=== PATIENT | male | born 1975 | race Caucasian/White ===

== ENCOUNTER 2021-06-11 19:29 | Emergency (ER) | payer BC ==
[~2021-06-11] VITALS: Ht 177.8 cm; Wt 84.0 kg
[2021-06-11] MEDS ORDERED: LACTATED RINGERS 1,000 ML IV STA (20:23)
--- NOTE | 2021-06-11 20:23 | ED General ---
General Chief Complaint: Dizziness/Syncope Stated Complaint: SHAKY, LIGHT HEADED, DIZZY, NUMBNESS Source of Information: Patient Exam Limitations: No Limitations History of Present Illness Date Seen by Provider: Jun 11, 2021 Time Seen by Provider: 19:35 Initial Comments 46-year-old male with past medical history of IBS-D and anemia coming in due to generally feeling lightheaded, general weakness, chronic diarrhea with no blood. Does intermittently been strick alcohol. Had 6 or 7 beers yesterday. Prior to that had not had a beer or drink of alcohol in over a week. Has never had any type of withdrawals. Denies any real chest pain that is severe, shortness of breath, abdominal pain, focal weakness or focal numbness, headache, vision changes, or any other concerns. Has been eating and drinking slightly less today. No fevers that he knows of. Allergies and Home Medications Allergies Coded Allergies: No Known Drug Allergies (Unverified , 06/11/21) Patient Home Medication List Home Medication List Reviewed: Yes Review of Systems Review of Systems Constitutional: No chills EENTM: No blurred vision Respiratory: No cough Cardiovascular: No chest pain Gastrointestinal: No abdominal pain; diarrhea; No vomiting Genitourinary: no symptoms reported Musculoskeletal: no symptoms reported Skin: no symptoms reported Psychiatric/Neurological: Other (Lightheaded) Hematologic/Lymphatic: No Symptoms Reported Immunological/Allergic: no symptoms reported All Other Systems Reviewed Negative Unless Noted: Yes Past Kfxfarh-Qgmppi-Zjakjv Hx Patient Social History Tobacco Use?: No Smoking Status: Never a Smoker Smokeless Tobacco Frequency: Never a User Use of E-Cig and/or Vaping dev: No Use of E-Cig and/or Vaping Garrett: Never a User Substance use?: No Alcohol Use?: Yes Alcohol type: Beer Alcohol Frequency: Daily Pt feels they are or have been: No Immunizations Up To Date Influenza Vaccine Up-to-Date: No; Not Current First/Initial COVID19 Vaccinat: 03/2020 Second COVID19 Vaccination Ozzy: 04/2020 COVID19 Vaccine Community Relations Officer: wilbert Past Medical History Surgeries: No Physical Exam Vital Signs Vital Signs - First Documented 06/11/21 20:10 Temp 36.6 Pulse 137 Resp 20 B/P (MAP) 154/95 (114) Pulse Ox 97 O2 Delivery Room Air Capillary Refill : Height, Weight, BMI Height: '" Weight: lbs. oz. kg; BMI Method: General Appearance: No Apparent Distress, WD/WN, Anxious Eyes: Bilateral Eye Normal Inspection HEENT: PERRL/EOMI, Normal ENT Inspection, Pharynx Normal Neck: Full Range of Motion, Normal Inspection, Non Tender Respiratory: Chest Non Tender, Lungs Clear, Normal Breath Sounds, No Accessory Muscle Use, No Respiratory Distress Cardiovascular: No Edema, Normal Peripheral Pulses, Tachycardia Gastrointestinal: Normal Bowel Sounds, Non Tender, Soft; No Distended, No Guarding Back: Normal Inspection, No CVA Tenderness, No Vertebral Tenderness Extremity: Normal Capillary Refill, Normal Inspection, Normal Range of Motion, Non Tender, No Calf Tenderness, No Pedal Edema Neurologic/Psychiatric: Alert, Oriented x3, No Motor/Sensory Deficits, Normal 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, 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 Norm as Tested, Other (Normal iylwfc-gb-tpsa, normal visual pedroza, normal gait) Skin: Normal Color, Warm/Dry Lymphatic: No Adenopathy Progress/Results/Core Measures Suspected Sepsis SIRS Temperature: Pulse: Respiratory Rate: Laboratory Tests 06/11/21 20:16: White Blood Count 10.5 Blood Pressure / Mean: Laboratory Tests 06/11/21 20:16: Creatinine 1.09, INR Comment 1.0, Platelet Count 334, Total Bilirubin 0.9 Results/Orders Lab Results Laboratory Tests Test 06/11/21 20:14 06/11/21 20:16 Range/Units Glucometer 108 70-110 MG/DL White Blood Count 10.5 4.3-11.0 10^3/uL Red Blood Count 5.12 4.30-5.52 10^6/uL Hemoglobin 16.6 13.3-17.7 g/dL Hematocrit 47 40-54 % Mean Corpuscular Volume 92 80-99 fL Mean Corpuscular Hemoglobin 32 25-34 pg Mean Corpuscular Hemoglobin Concent 35 32-36 g/dL Red Cell Distribution Width 13.9 10.0-14.5 % Platelet Count 334 130-400 10^3/uL Mean Platelet Volume 9.5 9.0-12.2 fL Immature Granulocyte % (Auto) 0 % Neutrophils (%) (Auto) 83 H 42-75 % Lymphocytes (%) (Auto) 10 L 12-44 % Monocytes (%) (Auto) 6 0-12 % Eosinophils (%) (Auto) 0 0-10 % Basophils (%) (Auto) 0 0-10 % Neutrophils # (Auto) 8.7 H 1.8-7.8 10^3/uL Lymphocytes # (Auto) 1.1 1.0-4.0 10^3/uL Monocytes # (Auto) 0.6 0.0-1.0 10^3/uL Eosinophils # (Auto) 0.0 0.0-0.3 10^3/uL Basophils # (Auto) 0.0 0.0-0.1 10^3/uL Immature Granulocyte # (Auto) 0.0 0.0-0.1 10^3/uL Prothrombin Time 13.1 12.2-14.7 SEC INR Comment 1.0 0.8-1.4 Sodium Level 139 135-145 MMOL/L Potassium Level 3.5 L 3.6-5.0 MMOL/L Chloride Level 104 98-107 MMOL/L Carbon Dioxide Level 17 L 21-32 MMOL/L Anion Gap 18 H 5-14 MMOL/L Blood Urea Nitrogen 15 7-18 MG/DL Creatinine 1.09 0.60-1.30 MG/DL Estimat Glomerular Filtration Rate 85 BUN/Creatinine Ratio 14 Glucose Level 102 70-105 MG/DL Calcium Level 9.7 8.5-10.1 MG/DL Corrected Calcium 8.5-10.1 MG/DL Magnesium Level 2.0 1.6-2.4 MG/DL Total Bilirubin 0.9 0.1-1.0 MG/DL Aspartate Amino Transf (AST/SGOT) 97 H 5-34 U/L Alanine Aminotransferase (ALT/SGPT) 98 H 0-55 U/L Alkaline Phosphatase 125 40-136 U/L Troponin I < 0.028 <0.028 NG/ML Total Protein 8.2 6.4-8.2 GM/DL Albumin 4.7 H 3.2-4.5 GM/DL My Orders Orders - SINDY SUAZO MD Cbc With Automated Diff (06/11/21 20:17) Comprehensive Metabolic Panel (06/11/21 20:17) Magnesium (06/11/21 20:17) Protime With Inr (06/11/21 20:17) Troponin I Ronnie (06/11/21 20:17) Chest 1 View, Ap/Pa Only (06/11/21 20:17) Ekg Tracing (06/11/21 20:17) Lactated Ringers (Lr 1000 Ml Iv Solution (06/11/21 20:23) Acetaminophen Tablet (Tylenol Tablet) (06/11/21 20:30) Medications Given in ED Current Medications Medications Dose Ordered Sig/Lexus Route Start Time Stop Time Status Last Admin Dose Admin Acetaminophen 1,000 mg ONCE ONCE PO 06/11/21 20:30 06/11/21 20:31 DC 06/11/21 20:39 1,000 MG Vital Signs/I&O 06/11/21 20:10 Temp 36.6 Pulse 137 Resp 20 B/P (MAP) 154/95 (114) Pulse Ox 97 O2 Delivery Room Air Capillary Refill : Progress Note : Progress Note 46-year-old male with above history coming in feeling lightheaded. ABCs were intact and vitals were stable on presentation although he is mildly tachycardic. An IV was placed and he was given a bolus of IV fluids. He did binge drink yesterday and has not really had a lot to eat or drink today. Heart rate came down nicely with fluids. Hemoglobin looks concentrated on CBC around 16 which would be consistent with dehydration. Labs otherwise essentially unremarkable. Chest x-ray without acute abnormalities. Troponin negative, and not having any active chest pain I believe he stable for discharge with outpatient follow-up. He was sent home with strict return precautions. ECG Initial ECG Impression Date: Jun 11, 2021 Initial ECG Impression Time: 20:25 Initial ECG Rate: 121 Initial ECG Rhythm: S.Tach Comment Narrow QRS, normal axis, no significant ST changes or T wave abnormalities Departure Impression Primary Impression: Lightheaded Disposition: 01 HOME, SELF-CARE Condition: Stable Departure-Patient Inst. Decision time for Depature: 21:09 Referrals: ILDEFONSO VALENZUELA MD (PCP/Family) Primary Care Physician Patient Instructions: Dizziness, Adult ED Add. Discharge Instructions: Drink plenty of fluids, take ibuprofen or Tylenol for pain, do not take Tylenol when drinking however. It does appear like you are dehydrated based on your labs. Work/School Note: Work Release Form Date Seen in the Emergency Department: Jun 11, 2021 Return to Work: Jun 12, 2021 Restrictions: No Restrictions SINDY SUAZO MD Jun 11, 2021 20:23
[2021-06-11 20:25] LABS: BASOPHILS % (AUTO) 0 % (0-10); EOSINOPHILS % (AUTO) 0 % (0-10); HEMATOCRIT 47 % (40-54); HEMOGLOBIN 16.6 g/dL (13.3-17.7); LYMPHOCYTES # (AUTO) 1.1 10^3/uL (1.0-4.0); LYMPHOCYTES % (AUTO) 10 % (12-44); MEAN CORPUSCULAR HEMOGLOBIN 32 pg (25-34); MEAN CORPUSCULAR HGB CONC 35 g/dL (32-36); MEAN CORPUSCULAR VOLUME 92 fL (80-99); MEAN PLATELET VOLUME 9.5 fL (9.0-12.2); MONOCYTES # (AUTO) 0.6 10^3/uL (0.0-1.0); MONOCYTES % (AUTO) 6 % (0-12); NEUTROPHILS # (AUTO) 8.7 10^3/uL (1.8-7.8); NEUTROPHILS % (AUTO) 83 % (42-75); PLATELET COUNT 334 10^3/uL (130-400); WHITE BLOOD COUNT 10.5 10^3/uL (4.3-11.0)
[2021-06-11] MEDS ORDERED: ACETAMINOPHEN 500 MG TAB (TYLENOL) PO ONE (20:30)
[2021-06-11 20:35] LABS: PROTHROMBIN TIME PATIENT 13.1 SEC (12.2-14.7)
[2021-06-11 20:38] LABS: ALANINE AMINOTRANSFERASE 98 U/L (0-55); ALBUMIN 4.7 GM/DL (3.2-4.5); ALKALINE PHOSPHATASE 125 U/L (40-136); BILIRUBIN,TOTAL 0.9 MG/DL (0.1-1.0); BUN/CREATININE RATIO 14; CALCIUM 9.7 MG/DL (8.5-10.1); CARBON DIOXIDE 17 MMOL/L (21-32); CHLORIDE 104 MMOL/L (98-107); CREATININE SERUM 1.09 MG/DL (0.60-1.30); GFR ESTIMATED 85; GLUCOSE 102 MG/DL (70-105); POTASSIUM 3.5 MMOL/L (3.6-5.0); SODIUM 139 MMOL/L (135-145); TOTAL PROTEIN 8.2 GM/DL (6.4-8.2)
--- NOTE | 2021-06-11 20:46 | Diagnostic Imaging Report ---
INDICATION: Chest pain COMPARISON: 10/01/12 FINDINGS: Single view of the chest demonstrates a moderate-sized hiatal hernia. The heart is prominent without pulmonary edema. There is no pneumothorax or effusion. Osseous structures are normal. IMPRESSION: Hiatal hernia. Dictated by: Dictated on workstation # [id number]
[2021-06-11 21:20] VITALS: BP 145/93
== END 2021-06-11 21:20 | disposition home or self-care (01) ==
LOC: EDUNIT# 19:29 → ER 19:35
DX: R42 Dizziness and giddiness (principal); R00.0 Tachycardia, unspecified
CPT/HCPCS: 36415; 71045; 80053; 82947; 83735; 84484; 85025; 85610; 93005

== ENCOUNTER 2022-08-19 14:32 | Inpatient (IN) | payer BC ==
[2022-08-19] VITALS (8 sets, daily range): BP systolic 118–147; BP diastolic 63–93
[~2022-08-19] VITALS: Ht 177 cm; Wt 82.0 kg
--- NOTE | 2022-08-19 14:54 | ED General ---
General Chief Complaint: General Problems/Pain Stated Complaint: LOW HEMOGLOBIN Nursing Triage Note: PT PRESENTS TO ED VIA POV FROM HOME WITH COMPLAINTS OF LETHARGY, AND SOA WITH EXTERTION X 2 WEEKS. PT HAD LAB WORK DONE AT HIS DR YESTERDAY AND REPORTS HE WAS CALLED TODAY SAYING HIS HGB WAS "CRITICALLY LOW" Source of Information: Patient Exam Limitations: No Limitations (SINDY WALLACE) History of Present Illness Date Seen by Provider: Aug 19, 2022 Time Seen by Provider: 14:52 Initial Comments Patient Is a 47-year-old male who presents the ED for shortness of breath, lethargy. Symptoms over the past 2 weeks. Reports shortness of breath with exertion but denies chest pain. states that he feels weak and fatigue over the past 2 weeks. He states he look pale. States he had lab work drawn by his primary care physician and was recommended to come to the ER secondary to low hemoglobin. Reports history of anemia in the past but denies blood transfusion. States he had a colonoscopy in 2019 which was unremarkable. Denies of any obvious dark tarry stool, diarrhea but does have a history of IBS. Denies vomiting. No known cardiac history. Not on blood thinners. Drinks nightly reports beer and liquor. Denies of any NSAID. No known blood disorders, recent travels, surgeries. Denies of any specific chest pain, headache, dizziness, visual changes. (SINDY WALLACE) Allergies and Home Medications Allergies Coded Allergies: No Known Drug Allergies (Unverified , 06/11/21) Patient Home Medication List Home Medication List Reviewed: Yes (SINDY WALLACE) Review of Systems Review of Systems Constitutional: No chills, No diaphoresis, No malaise, No weakness EENTM: No hearing loss, No blurred vision, No double vision Respiratory: No cough, No dyspnea on exertion; short of breath Cardiovascular: No chest pain Gastrointestinal: No abdominal pain, No diarrhea, No hematemesis, No nausea, No vomiting Genitourinary: No decreased output, No discharge Musculoskeletal: No back pain, No joint pain Skin: change in color (SINDY WALLACE) All Other Systems Reviewed Negative Unless Noted: Yes (SINDY WALLACE) Past Kwdnbcf-Disoju-Lkszmz Hx Patient Social History Tobacco Use?: No Use of E-Cig and/or Vaping dev: No Substance use?: No Alcohol Use?: Yes Alcohol Frequency: Daily Pt feels they are or have been: No (SINDY WALLACE) Immunizations Up To Date First/Initial COVID19 Vaccinat: 03/2020 Second COVID19 Vaccination Ozzy: 04/2020 Third COVID19 Vaccination Date: 03/2020 (SINDY WALLACE) Past Medical History Surgery/Hospitalization HX: pmh: ibs, sleep difficulty Surgeries: No (SINDY WALLACE) Physical Exam Vital Signs Vital Signs - First Documented 08/19/22 08/19/22 14:39 16:25 Temp 38.3 Pulse 123 Resp 16 B/P (MAP) 126/67 (86) Pulse Ox 100 O2 Delivery Room Air (BARRINGTON RAYA MD) Vital Signs Capillary Refill : Less Than 3 Seconds (SINDY WALLACE) Height, Weight, BMI Height: '" Weight: lbs. oz. kg; 26.00 BMI Method: General Appearance: No Apparent Distress, WD/WN Eyes: Bilateral Eye Normal Inspection, Bilateral Eye PERRL, Bilateral Eye EOMI HEENT: PERRL/EOMI, TMs Normal Neck: Full Range of Motion, Normal Inspection, Non Tender, Supple Respiratory: Chest Non Tender, Lungs Clear, Normal Breath Sounds, No Accessory Muscle Use Cardiovascular: No Gallop, No JVD, Tachycardia Gastrointestinal: Normal Bowel Sounds, No Organomegaly, No Pulsatile Mass, Non Tender Back: Normal Inspection, No CVA Tenderness, No Vertebral Tenderness Extremity: Normal Capillary Refill, Normal Inspection, Normal Range of Motion Neurologic/Psychiatric: Alert, Oriented x3, No Motor/Sensory Deficits, Normal 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/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, 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 Norm as Tested Skin: Normal Color, Other (pallor skin) (SINDY WALLAEC) Focused Exam Lactate Level 08/19/22 16:41: Lactic Acid Level 0.95 (BARRINGTON RAYA MD) Lactic Acid Level Laboratory Tests Test 08/19/22 16:41 Lactic Acid Level 0.95 MMOL/L (0.50-2.00) (BARRINGTON RAYA MD) Progress/Results/Core Measures Suspected Sepsis SIRS Temperature: Pulse: 123 Respiratory Rate: 16 Laboratory Tests 08/19/22 14:43: White Blood Count 6.9 Blood Pressure 126 /67 Mean: 86 08/19/22 16:41: Lactic Acid Level 0.95 Laboratory Tests 08/19/22 14:43: Creatinine 0.92, INR Comment 1.3, Platelet Count 277, Total Bilirubin 1.0 (SINDY WALLACE) Results/Orders Lab Results Laboratory Tests Test 08/19/22 14:43 08/19/22 16:41 08/19/22 18:10 Range/Units White Blood Count 6.9 4.3-11.0 10^3/uL Red Blood Count 2.20 L 4.30-5.52 10^6/uL Hemoglobin 4.4 *L 13.3-17.7 g/dL Hematocrit 17 *L 40-54 % Mean Corpuscular Volume 75 L 80-99 fL Mean Corpuscular Hemoglobin 20 L 25-34 pg Mean Corpuscular Hemoglobin Concent 27 L 32-36 g/dL Red Cell Distribution Width 17.2 H 10.0-14.5 % Platelet Count 277 130-400 10^3/uL Mean Platelet Volume 10.9 9.0-12.2 fL Immature Granulocyte % (Auto) 0 % Neutrophils (%) (Auto) 78 H 42-75 % Lymphocytes (%) (Auto) 10 L 12-44 % Monocytes (%) (Auto) 11 0-12 % Eosinophils (%) (Auto) 1 0-10 % Basophils (%) (Auto) 1 0-10 % Neutrophils # (Auto) 5.3 1.8-7.8 10^3/uL Lymphocytes # (Auto) 0.7 L 1.0-4.0 10^3/uL Monocytes # (Auto) 0.7 0.0-1.0 10^3/uL Eosinophils # (Auto) 0.1 0.0-0.3 10^3/uL Basophils # (Auto) 0.0 0.0-0.1 10^3/uL Immature Granulocyte # (Auto) 0.0 0.0-0.1 10^3/uL Neutrophils % (Manual) 84 % Lymphocytes % (Manual) 8 % Monocytes % (Manual) 7 % Basophils % (Manual) 1 % Percent Immature Platelet Fraction 3.5 0.0-7.6 % Hypochromasia MARKED Basophilic Stippling SLIGHT Anisocytosis MODERATE Microcytosis MODERATE Elliptocytes SLIGHT Schistocytes SLIGHT Absolute Reticulocyte Count 57 24-90 10e9/uL Percent Reticulocyte Count 2.61 H 0.50-2.40 % Prothrombin Time 16.0 H 12.2-14.7 SEC INR Comment 1.3 0.8-1.4 Activated Partial Thromboplast Time 36 H 24-35 SEC Sodium Level 137 135-145 MMOL/L Potassium Level 3.7 3.6-5.0 MMOL/L Chloride Level 108 H 98-107 MMOL/L Carbon Dioxide Level 21 21-32 MMOL/L Anion Gap 8 5-14 MMOL/L Blood Urea Nitrogen 13 7-18 MG/DL Creatinine 0.92 0.60-1.30 MG/DL Estimat Glomerular Filtration Rate 104 BUN/Creatinine Ratio 14 Glucose Level 92 70-105 MG/DL Calcium Level 8.1 L 8.5-10.1 MG/DL Corrected Calcium 8.6 8.5-10.1 MG/DL Magnesium Level 1.9 1.6-2.4 MG/DL Iron Level 8 L 37-167 ug/dL Total Iron Binding Capacity 342 H 237-330 ug/dL Unsaturated Iron Binding Capacity 334 25-500 ug/dL Transferrin % Saturation 2 L 17-57 % Ferritin 14.8 L 32.0-356.0 ng/mL Total Bilirubin 1.0 0.1-1.0 MG/DL Aspartate Amino Transf (AST/SGOT) 45 H 5-34 U/L Alanine Aminotransferase (ALT/SGPT) 26 0-55 U/L Alkaline Phosphatase 136 40-136 U/L Troponin I < 0.028 <0.028 NG/ML Total Protein 6.0 L 6.4-8.2 GM/DL Albumin 3.4 3.2-4.5 GM/DL Lipase 58 8-78 U/L Lactic Acid Level 0.95 0.50-2.00 MMOL/L Urine Color YELLOW Urine Clarity CLEAR Urine pH 7.0 5-9 Urine Specific [place] <=1.005 1.016-1.022 Urine Protein TRACE H NEGATIVE Urine Glucose (UA) NEGATIVE NEGATIVE Urine Ketones TRACE H NEGATIVE Urine Nitrite NEGATIVE NEGATIVE Urine Bilirubin NEGATIVE NEGATIVE Urine Urobilinogen 1.0 < = 1.0 MG/DL Urine Leukocyte Esterase NEGATIVE NEGATIVE Urine RBC (Auto) NEGATIVE NEGATIVE Urine RBC 0-2 /HPF Urine WBC 0-2 /HPF Urine Squamous Epithelial Cells 0-2 /HPF Urine Crystals NONE /LPF Urine Bacteria TRACE /HPF Urine Casts NONE /LPF Urine Mucus SMALL H /LPF Urine Other /HPF Urine Culture Indicated NO (BARRINGTON RAYA MD) Vital Signs/I&O 08/19/22 08/19/22 08/19/22 08/19/22 14:39 16:25 16:40 16:55 Temp 38.3 37.0 37.3 37.3 Pulse 123 123 115 112 Resp 16 20 18 18 B/P (MAP) 126/67 (86) 120/73 125/70 118/63 Pulse Ox 100 100 98 99 O2 Delivery Room Air Room Air Room Air 08/19/22 18:10 Temp 37.3 Pulse 17 Resp 18 B/P (MAP) 133/84 Pulse Ox 100 08/20/22 00:00 Intake Total 270 ml Balance 270 ml (BARRINGTON RAYA MD) Vital Signs/I&O Capillary Refill : Less Than 3 Seconds (SINDY WALLACE) Blood Pressure Mean: 86 ECG Comment Sinus tachycardia with short MO interval, 113 bpm, QRS duration 87 MS, QTc 434 MS. (SINDY WALLACE) Critical Care Note Critical Care Start Time: 15:00 Stop Time: 15:45 Total Time (minutes) 45 min Progress Hemoglobin of 4.4 required 2 units of blood transfusion. (SINDY WALLACE) Departure Communication (PCP) Reviewed previous ER visits, H&P, lab testing. Reports history of anemia. Denies recent blood transfusion. No history of cancer. History of alcohol use nightly. Intermittent abdominal pain but no current abominal pain at this time. Patient was slightly tachycardic and febrile. Septic work-up was ordered. No urinary symptoms. Patient does appear slightly pale. Type and screen, coags general lab work. Patient Hemoccult tested positive. Patient was given 80 mg IV Protonix. CBC showed a hemoglobin of 4.4 hematocrit 17. Normal white blood count and platelets. Chemistry grossly unremarkable. Normal lactic acid. Due to the shortness of breath EKG and chest x-ray was ordered which was negative for ST elevation or depression. Sinus tachycardia noted. Chest x-ray was negative for pneumonia, pneumothorax. Tachycardic secondary to fever versus anemia. No evidence of pneumonia. Patient had no specific abdominal tenderness. Due to the history of abdominal pain and bleed CT abdomen pelvis was ordered. CT abdomen pelvis noted cirrhosis. No evidence of esophageal varices. Patient denies hematemesis or hematochezia. Denies of excessive NSAID use. Differential diagnosis would be iron deficiency anemia, GI bleed secondary to gastritis, ulcer. Patient was discussed with Dr. Jones general surgeon. Recommend clear liquids, continue with IV Protonix. Will require upper EGD and colonoscopy. Patient was discussed with Dr. Perez hospitalist who agreed to admit patient. We will provide acute orders. Does not appear to be peritonitis as he has no specific tenderness to the abdomen and normal WBC however due to the fever of unknown origin patient was given a dose of Rocephin. urinalysis currently pending. No flulike symptoms. Patient will be admitted to the ICU for further evaluation. Improvement of his heart rate. Patient was not hypoxic or hypotensive. Stable (SINDY WALLACE) Impression Primary Impression: Anemia Additional Impression: GI bleed Disposition: ADMITTED INPATIENT Condition: Stable Admissions Decision to Admit Reason: Admit from ER (General) Decision to Admit/Date: Aug 19, 2022 Time/Decision to Admit Time: 16:00 (SINDY WALLACE) Departure-Patient Inst. Referrals: NURIS COOPER MD (PCP/Family) Primary Care Physician ATTENDING PHYSICIAN NOTE: I was physically present in the Emergency Department during the evaluation and care of this patient as attending physician, and I was available for consultation and assistance. I did not personally interview or examine this patient, nor was I otherwise directly involved in the care or decision making for this patient. (BARRINGTON RAYA MD) SINDY WALLACE Aug 19, 2022 14:54 BARRINGTON RAYA MD Aug 20, 2022 08:41
[2022-08-19 14:59] LABS: BASOPHILS % (AUTO) 1 % (0-10); EOSINOPHILS # (AUTO) 0.1 10^3/uL (0.0-0.3); EOSINOPHILS % (AUTO) 1 % (0-10); LYMPHOCYTES # (AUTO) 0.7 10^3/uL (1.0-4.0); LYMPHOCYTES % (AUTO) 10 % (12-44); MEAN CORPUSCULAR HEMOGLOBIN 20 pg (25-34); MEAN CORPUSCULAR HGB CONC 27 g/dL (32-36); MEAN CORPUSCULAR VOLUME 75 fL (80-99); MEAN PLATELET VOLUME 10.9 fL (9.0-12.2); MONOCYTES # (AUTO) 0.7 10^3/uL (0.0-1.0); MONOCYTES % (AUTO) 11 % (0-12); NEUTROPHILS # (AUTO) 5.3 10^3/uL (1.8-7.8); NEUTROPHILS % (AUTO) 78 % (42-75); PLATELET COUNT 277 10^3/uL (130-400); WHITE BLOOD COUNT 6.9 10^3/uL (4.3-11.0)
[2022-08-19] MEDS ORDERED: HOLD METFORMIN - RECEIVED CONTRAST 20 ML VIAL IV SCH (15:00)
[2022-08-19] MEDS ORDERED: NS 100 ML (IVPB) BAG IV ONE (15:00)
[2022-08-19] MEDS ORDERED: IOHEXOL 350 MG/ML 100 ML (OMNIPAQUE 350) VIAL IV ONE (15:00)
[2022-08-19] MEDS ORDERED: PANTOPRAZOLE 40 MG (PROTONIX) VIAL IV ONE (15:00)
[2022-08-19 15:06] LABS: HEMATOCRIT 17 % (40-54); HEMOGLOBIN 4.4 g/dL (13.3-17.7)
[2022-08-19 15:08] LABS: ALBUMIN 3.4 GM/DL (3.2-4.5); CHLORIDE 108 MMOL/L (98-107); POTASSIUM 3.7 MMOL/L (3.6-5.0); SODIUM 137 MMOL/L (135-145)
[2022-08-19 15:09] LABS: CALCIUM 8.1 MG/DL (8.5-10.1)
[2022-08-19 15:10] LABS: GLUCOSE 92 MG/DL (70-105)
[2022-08-19 15:11] LABS: CARBON DIOXIDE 21 MMOL/L (21-32)
[2022-08-19 15:14] LABS: ALKALINE PHOSPHATASE 136 U/L (40-136); CREATININE SERUM 0.92 MG/DL (0.60-1.30); GFR ESTIMATED 104; INR 1.3 (0.8-1.4)
[2022-08-19 15:15] LABS: BUN/CREATININE RATIO 14
[2022-08-19 15:17] LABS: ALANINE AMINOTRANSFERASE 26 U/L (0-55); MAGNESIUM 1.9 MG/DL (1.6-2.4)
[2022-08-19 15:18] LABS: LIPASE 58 U/L (8-78)
[2022-08-19 15:25] LABS: ABSOLUTE RETIC # 57 10e9/uL (24-90); RETICULOCYTE % 2.61 % (0.50-2.40)
[2022-08-19 15:33] LABS: BASOPHILS % (MANUAL) 1 %; LYMPHOCYTES % (MANUAL) 8 %; MONOCYTES % (MANUAL) 7 %; NEUTROPHILS % (MANUAL) 84 %
[2022-08-19 15:34] LABS: ANISOCYTOSIS MODERATE; ELLIPT/OVALOCYTES SLIGHT; HYPOCHROMASIA MARKED; MICROCYTOSIS MODERATE; SCHISTOCYTES SLIGHT
--- NOTE | 2022-08-19 15:34 | Diagnostic Imaging Report ---
INDICATION: Shortness of breath. COMPARISON: Exam compared to 08/19/2022. FINDINGS: There is a large retrocardiac hiatal hernia. It is less distended than on prior. No adverse change. No acute pathology. The lungs are clear. No failure, effusion, or pneumothorax. IMPRESSION: Hiatal hernia, otherwise negative. Dictated by: Dictated on workstation # [id number]
--- NOTE | 2022-08-19 15:47 | Diagnostic Imaging Report ---
EXAMINATION: CT abdomen and pelvis with intravenous contrast. TECHNIQUE: Multiple contiguous axial images were obtained through the abdomen and pelvis after the uneventful administration of intravenous contrast. All CT scans use one or more of the following dose optimizing techniques: automated exposure control, MA and/or KvP adjustment based on patient size and exam type or iterative reconstruction. HISTORY: Abdominal pain COMPARISON: None available. FINDINGS: Limited views of the lower thorax show small bilateral pleural effusions, right greater than left with overlying atelectasis in the right lower lobe. There is a moderate-sized hiatal hernia. There is a cyst in the liver. Liver surface is mildly nodular suggestive of cirrhosis. There is no biliary ductal dilation. There is mild gallbladder wall edema which may be related to liver disease. Pancreas is normal. Spleen is normal. Adrenal glands are normal. The kidneys are normal. There is no hydronephrosis. Urinary bladder is normal. Bowel is normal in caliber without obstruction or inflammation. Small amount of ascites is present. No free air. No abdominal or pelvic lymphadenopathy. Aorta is normal in caliber without aneurysm. There are no suspicious osseus lesions. IMPRESSION: 1. Mildly nodular liver surface suggestive of cirrhosis with a small amount of ascites and small bilateral pleural effusions. Dictated by: Dictated on workstation # [id number]
[2022-08-19] MEDS ORDERED: NS (IVPB) 250 ML IV ONE (16:00)
[2022-08-19] MEDS ORDERED: cefTRIAXone IV/IM 1,000 MG in NS (IVPB) 50 ML IV ONE (16:30)
[2022-08-19 18:25] LABS: BILIRUBIN,URINE NEGATIVE (NEGATIVE); CLARITY,URINE CLEAR; COLOR,URINE YELLOW; GLUCOSE, URINE (UA) NEGATIVE (NEGATIVE); KETONES,URINE TRACE (NEGATIVE); LEUKOCYTE ESTERASE ,URINE NEGATIVE (NEGATIVE); NITRITE,URINE NEGATIVE (NEGATIVE); PROTEIN,URINE TRACE (NEGATIVE)
[2022-08-19] MEDS ORDERED: ACETAMINOPHEN 325 MG TABLET PO PRN (18:30)
[2022-08-19] MEDS ORDERED: BISACODYL 10 MG SUPP (DULCOLAX) PR PRN (18:30)
[2022-08-19] MEDS ORDERED: MILK OF MAGNESIA 400 MG/5 ML 30 ML UDC PO PRN (18:30)
[2022-08-19] MEDS ORDERED: MELATONIN 3 MG TABLET PO PRN (18:30)
[2022-08-19] MEDS ORDERED: ONDANSETRON 4 MG/2 ML (SDV) Z0FRAN IV PRN (18:30)
[2022-08-19] MEDS ORDERED: LACTULOSE SYRUP 10GM/15ML (ENULOSE) 30ML UDC PO PRN (18:30)
[2022-08-19] MEDS ORDERED: CALCIUM CARBONATE 500 MG (TUMS) TAB.CHEW PO PRN (18:30)
[2022-08-19] MEDS ORDERED: ONDANSETRON 4 MG (ZOFRAN) ORAL DISSOLVE TAB PO PRN (18:30)
[2022-08-19] MEDS ORDERED: ANTACID SUSP 30 ML UDC (MYLANTA) PO PRN (18:30)
[2022-08-19] MEDS ORDERED: polyethylene glycoL POWDER 17 GM (MIRALAX) PACK PO PRN (18:30)
[2022-08-19] MEDS ORDERED: diphenhydrAMINE 50 MG/ML INJ (BENADRYL) IVP PRN (18:30)
[2022-08-19] MEDS ORDERED: diphenhydrAMINE 25 MG TAB (BENADRYL) PO PRN (18:30)
[2022-08-19 18:38] LABS: BACTERIA,URINE TRACE /HPF; RBC,URINE 0-2 /HPF; SQUAMOUS EPITHELIAL CELL,UR 0-2 /HPF; WBC,URINE 0-2 /HPF
[2022-08-19] MEDS ORDERED: NS IV 500 ML 500 ML ONE (19:44)
[2022-08-19 19:53] LABS: HEMOGLOBIN 5.3 g/dL (13.3-17.7)
[2022-08-19] MEDS: SENNOSIDES 8.6 MG (SENOKOT) TAB PO SCH (20:15)
[2022-08-19] MEDS: DOCUSATE SODIUM 100 MG (COLACE) CAP PO SCH (20:15)
[2022-08-19] MEDS: PANTOPRAZOLE 40 MG (PROTONIX) VIAL IV SCH (21:35)
--- NOTE | 2022-08-19 22:19 | Consultation - Surgery ---
History of Present Illness History of Present Illness Patient Consulted On(augustina/time) 08/19/22 17:13 Date Seen by Provider: Aug 19, 2022 Time Seen by Provider: 17:13 History of Present Illness Seen and evaluated in ED. Consult requested by Dr. Perez for anemia Patient is a 47-year-old male who over the last 2 weeks started having more weakness fatigue and shortness of breath. With worsening with activity. Gradual increase of his symptoms. He does not notice any blood or dark stools. He states he has IBS and usually more liquid stools. Patient has not had symptoms like this. Due to the symptoms patient had blood work drawn from his primary care provider and was told to go to the emergency department due to low hemoglobin. Patient has no nausea or vomiting. Not had any previous symptoms like this before. Denies any fever sweats chills or chest pain.Patient had CT scan performed: demonstrating hiatal hernia, nodular appearance of liver, some ascites.b/l pleural effusions. Allergies and Home Medications Allergies Coded Allergies: No Known Drug Allergies (Unverified , 06/11/21) Patient Home Medication List Home Medication List Reviewed: Yes Past Vtcufaa-Gfnruu-Pgcotk Hx Patient Social History Smoking Status: Never a Smoker Alcohol Use?: Yes Surgeries History of Surgeries: No Gastrointestinal History of Gastrointestinal Di: Yes Gastrointestinal Disorders: Irritable Bowel Reviewed Nursing Assessment Reviewed/Agree w Nursing PMH: Yes Family Medical History Significant Family History: No Pertinent Family Hx Review of Systems-General Constitutional: No diaphoresis; weakness EENTM: No blurred vision, No double vision Respiratory: No cough, No dyspnea on exertion Cardiovascular: No chest pain, No palpitations Gastrointestinal: No abdominal pain, No nausea, No vomiting Genitourinary: No decreased output, No discharge Musculoskeletal: No back pain Skin: No change in color, No change in hair/nails Psychiatric/Neurological: Denies Anxiety, Denies Depressed, Denies Emotional Problems All Other Systems Reviewed Negative Unless Noted: Yes (Negative excepted noted.) Physical Exam-General Problems Physical Exam Vital Signs Vital Signs - First Documented 08/19/22 08/19/22 14:39 16:25 Temp 38.3 Pulse 123 Resp 16 B/P (MAP) 126/67 (86) Pulse Ox 100 O2 Delivery Room Air Capillary Refill : Less Than 3 Seconds General Appearance: WD/WN, no apparent distress HEENT: PERRL/EOMI, normal ENT inspection Neck: non-tender, supple Respiratory: chest non-tender, no respiratory distress, no accessory muscle use Cardiovascular: no JVD, tachycardia Gastrointestinal: non tender, soft Rectal: deferred Back: normal inspection, no CVA tenderness Extremities: non-tender, normal inspection Neurologic/Psychiatric: alert, normal mood/affect, oriented x 3 Skin: warm/dry, pallor Lymphatic: no adenopathy Data Review Labs Laboratory Tests 08/19/22 14:43: White Blood Count 6.9, Red Blood Count 2.20L, Hemoglobin 4.4*L, Hematocrit 17*L, Mean Corpuscular Volume 75L, Mean Corpuscular Hemoglobin 20L, Mean Corpuscular Hemoglobin Concent 27L, Red Cell Distribution Width 17.2H, Platelet Count 277, Mean Platelet Volume 10.9, Immature Granulocyte % (Auto) 0, Neutrophils (%) (Auto) 78H, Lymphocytes (%) (Auto) 10L, Monocytes (%) (Auto) 11, Eosinophils (%) (Auto) 1, Basophils (%) (Auto) 1, Neutrophils # (Auto) 5.3, Lymphocytes # (Auto) 0.7L, Monocytes # (Auto) 0.7, Eosinophils # (Auto) 0.1, Basophils # (Auto) 0.0, Immature Granulocyte # (Auto) 0.0, Neutrophils % (Manual) 84, Lymphocytes % (Manual) 8, Monocytes % (Manual) 7, Basophils % (Manual) 1, Percent Immature Platelet Fraction 3.5, Hypochromasia MARKED, Basophilic Stippling SLIGHT, Anisocytosis MODERATE, Microcytosis MODERATE, Elliptocytes SLIGHT, Schistocytes SLIGHT, Absolute Reticulocyte Count 57, Percent Reticulocyte Count 2.61H, Prothrombin Time 16.0H, INR Comment 1.3, Activated Partial Thromboplast Time 36H , Sodium Level 137, Potassium Level 3.7, Chloride Level 108H, Carbon Dioxide Level 21, Anion Gap 8, Blood Urea Nitrogen 13, Creatinine 0.92, Estimat Glomerular Filtration Rate 104, BUN/Creatinine Ratio 14, Glucose Level 92, Calcium Level 8.1L, Corrected Calcium 8.6, Magnesium Level 1.9, Iron Level 8L, Total Iron Binding Capacity 342H, Unsaturated Iron Binding Capacity 334, Transferrin % Saturation 2L, Ferritin 14.8L, Total Bilirubin 1.0, Aspartate Amino Transf (AST/SGOT) 45H, Alanine Aminotransferase (ALT/SGPT) 26, Alkaline Phosphatase 136, Troponin I < 0.028, Total Protein 6.0L, Albumin 3.4, Lipase 58 08/19/22 16:41: Lactic Acid Level 0.95 08/19/22 18:10: Urine Color YELLOW, Urine Clarity CLEAR, Urine pH 7.0, Urine Specific [place] <=1.005, Urine Protein TRACEH, Urine Glucose (UA) NEGATIVE, Urine Ketones TRACEH , Urine Nitrite NEGATIVE, Urine Bilirubin NEGATIVE, Urine Urobilinogen 1.0, Urine Leukocyte Esterase NEGATIVE, Urine RBC (Auto) NEGATIVE, Urine RBC 0-2, Urine WBC 0-2, Urine Squamous Epithelial Cells 0-2, Urine Crystals NONE, Urine Bacteria TRACE, Urine Casts NONE, Urine Mucus SMALLH, Urine Other , Urine Culture Indicated NO 08/19/22 19:44: Hemoglobin 5.3#*L, Hematocrit 19*L Assessment/Plan Assessment/Plan Assessment/Plan anemia abnormal ct scan with nodular appearance of liver (cirrhosis) weakness fatigue shortness of breath patietn anemic withi his hgb less than 6 getting transfused. follow hgb and transfuse as needed. he does not have any symptoms of acute bleeding at this time he is anxious to get home and get back to work he is not really wanting to be admitted but is okay with it for now. discussed will need endoscopy for further evaluation, inpatient vs outpatient clear liquids protonix KIRTI JORDAN DO Aug 19, 2022 22:19
[2022-08-19 23:47] LABS: HEMOGLOBIN 5.9 g/dL (13.3-17.7)
--- NOTE | 2022-08-19 23:57 | Tele-ICU Progress Note ---
Subjective Date Seen by a Provider: Aug 19, 2022 Time Seen by a Provider: 23:53 Subjective/Events-last exam called for GI bleed, after 2 units of PRBC, Hb still 5.9, will give one more unit PRBC, also would notify endoscopist, pt not actively bleeding BP ok 141/71 INR 1.3PT 16, PTT 36, plt count 277 Continue on IV PPI Sepsis Event Evaluation Height, Weight, BMI Height: '" Weight: lbs. oz. kg; 26.49 BMI Method: Focused Exam Lactate Level 08/19/22 16:41: Lactic Acid Level 0.95 Exam Exam Patient acknowledged, consented, and participated in this virtual visit which was conducted using real time audio/video Vital Signs Date Time Temp Pulse Resp B/P (MAP) Pulse Ox O2 Delivery O2 Flow Rate FiO2 08/19/22 21:37 37.2 106 16 147/71 97 Room Air 08/19/22 20:09 37.0 105 16 143/93 98 Room Air 08/19/22 20:00 36.9 Room Air 08/19/22 20:00 96 Room Air 08/19/22 19:54 36.9 103 16 147/74 99 Room Air 08/19/22 19:00 104 08/19/22 18:50 Room Air 08/19/22 18:40 105 08/19/22 18:30 37.1 155/75 (101) 100 Room Air 08/19/22 18:25 37.3 17 18 133/84 100 Room Air 08/19/22 18:10 37.3 17 18 133/84 100 08/19/22 16:55 37.3 112 18 118/63 99 Room Air 08/19/22 16:40 37.3 115 18 125/70 98 Room Air 08/19/22 16:25 37.0 123 20 120/73 100 Room Air 08/19/22 14:39 38.3 123 16 126/67 (86) 100 Height & Weight Height: '" Weight: lbs. oz. 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
[2022-08-20 01:10] VITALS: BP 128/60
[2022-08-20 01:11] VITALS: BP 128/60
[2022-08-20 01:25] VITALS: BP 123/90
[2022-08-20 03:10] VITALS: BP 112/56
[2022-08-20 05:29] LABS: BASOPHILS % (AUTO) 0 % (0-10); EOSINOPHILS # (AUTO) 0.1 10^3/uL (0.0-0.3); EOSINOPHILS % (AUTO) 1 % (0-10); HEMATOCRIT 23 % (40-54); LYMPHOCYTES # (AUTO) 0.3 10^3/uL (1.0-4.0); LYMPHOCYTES % (AUTO) 4 % (12-44); MEAN CORPUSCULAR HEMOGLOBIN 23 pg (25-34); MEAN CORPUSCULAR HGB CONC 30 g/dL (32-36); MEAN CORPUSCULAR VOLUME 78 fL (80-99); MEAN PLATELET VOLUME 11.6 fL (9.0-12.2); MONOCYTES # (AUTO) 0.4 10^3/uL (0.0-1.0); MONOCYTES % (AUTO) 5 % (0-12); NEUTROPHILS # (AUTO) 6.6 10^3/uL (1.8-7.8); NEUTROPHILS % (AUTO) 89 % (42-75); PLATELET COUNT 228 10^3/uL (130-400); WHITE BLOOD COUNT 7.5 10^3/uL (4.3-11.0)
[2022-08-20 05:33] LABS: HEMOGLOBIN 6.8 g/dL (13.3-17.7)
[2022-08-20 05:51] LABS: ALBUMIN 3.2 GM/DL (3.2-4.5); BILIRUBIN,TOTAL 3.8 MG/DL (0.1-1.0); CALCIUM 7.8 MG/DL (8.5-10.1); CREATININE SERUM 0.81 MG/DL (0.60-1.30); POTASSIUM 3.8 MMOL/L (3.6-5.0); TOTAL PROTEIN 5.4 GM/DL (6.4-8.2)
[2022-08-20] MEDS ORDERED: KCL 20 MEQ TAB (K-DUR) PO ONE (06:30)
[2022-08-20] MEDS ORDERED: NS IV 500 ML 500 ML IV PRN (06:45)
[2022-08-20] MEDS ORDERED: IRON DEXTRAN INJECTION 25 MG in NS (IVPB) 5.75 ML IV ONE (08:15)
[2022-08-20] MEDS ORDERED: NS IV 500 ML 500 ML IV SCH ×2 (08:15)
[2022-08-20] MEDS ORDERED: diphenhydrAMINE 50 MG/ML INJ (BENADRYL) IV PRN (08:15)
[2022-08-20] MEDS ORDERED: RT-ALBUTEROL SULF 2.5 MG/3 ML PRE-MIX VIAL IH PRN (08:15)
[2022-08-20] MEDS ORDERED: IRON DEXTRAN INJECTION 1,000 MG in NS (IVPB) 250 ML IV ONE (08:15)
[2022-08-20] MEDS ORDERED: EPINEPHrine INJECTION 1 MG/ML AMP IM PRN (08:15)
[2022-08-20] MEDS ORDERED: HYDROCORTISONE 100 MG/2 ML (Solu-CORTEF) VIAL IV PRN (08:15)
[2022-08-20] MEDS ORDERED: IRON SUCROSE 200 MG/10 ML (VENOFER) VIAL IV SCH (09:00)
[2022-08-20 09:38] LABS: HEMOGLOBIN 7.3 g/dL (13.3-17.7)
[2022-08-20] MEDS: DOCUSATE SODIUM 100 MG (COLACE) CAP PO SCH ×2 (09:42→19:39)
[2022-08-20] MEDS: cefTRIAXone IV/IM 1,000 MG in NS (IVPB) 50 ML IV SCH (09:42)
[2022-08-20] MEDS: SENNOSIDES 8.6 MG (SENOKOT) TAB PO SCH ×2 (09:42→19:39)
[2022-08-20] MEDS: PANTOPRAZOLE 40 MG (PROTONIX) VIAL IV SCH ×2 (09:43→19:40)
--- NOTE | 2022-08-20 09:43 | Tele-ICU Progress Note ---
Progress Note Video assessment done , Hemodynamically stable Available charting reviewed, discussed with RN NO TELE-ICU CONSULT REQUESTED CONTINUE TO MONITOR PER USUAL TELE-ICU PROTOCOL GIB - s/p tranfusion pRBC, vitals astable , no complans - faollow CBC Sx on consult No need for Tele-ICU interventions Plans as delineated by bedside physicians / consultants Focused Exam Lactate Level 08/19/22 16:41: Lactic Acid Level 0.95 Height, Weight, BMI Height: '" Weight: lbs. oz. kg; 26.49 BMI Method: ANDRE SCHWARTZ MD Aug 20, 2022 09:43
[2022-08-20] MEDS ORDERED: OMEP40CA6 PO (11:41)
[2022-08-20] MEDS ORDERED: ROSU20TA32 PO (11:41)
[2022-08-20] MEDS ORDERED: TEMA30CA PO (11:41)
[2022-08-20] MEDS ORDERED: ELUX100T PO (11:41)
--- NOTE | 2022-08-20 16:35 | History & Physical-Hospitalist ---
History of Present Illness HPI/Chief Complaint Juanito Rodriguez is a 47 year old male who presented after having abnormal lab results from his PCP. He reports feeling tired. He has been getting short of breath easily. He has occasionally been lightheaded. He denies chest pain. He denies nausea and vomiting. He denies diarrhea. He denies bloody stools. He denies black, tarry stools. 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 He had been out of work recently. He has been on sleeping aides in the past but ran out when he was unable to fill his prescription. He says he has been drinking alcohol nightly to help with sleep. Source: patient Exam Limitations: no limitations Date Seen 08/20/22 Time Seen by a Provider: 09:15 Attending Physician Elias Fallon MD PCP Admitting Physician: Radhika Campo MD Attending Physician: Radhika Campo MD Referring Physician Date of Admission Aug 19, 2022 at 18:24 Home Medications & Allergies Home Medications Reviewed patient Home Medication Reconciliation performed by pharmacy medication reconciliations general service technician and/or nursing. Patients Allergies have been reviewed. Allergies Allergies Coded Allergies No Known Drug Allergies (Unverified06/11/21) Past Eowbtdm-Yoahnc-Beaghe Hx Patient Social History Tobacco Use?: No Smoking Status: Never a Smoker Use of E-Cig and/or Vaping dev: No Substance use?: No Alcohol Use?: Yes Alcohol type: Beer, Hard Liquor Additional alcohol type: 6 BEERS DAILY/6 MIXED DRINKS Alcohol Frequency: Daily Pt feels they are or have been: No Immunizations Up To Date First/Initial COVID19 Vaccinat: 03/2020 Second COVID19 Vaccination Ozzy: 04/2020 Tetanus Booster (TDap): Unknown Current Status Advance Directives: No Primary Language: Romansh Preferred Spoken Language: Romansh Past Medical History Irritable Bowel Family Medical History No Pertinent Family Hx Review of Systems Constitutional: dizziness, weakness Respiratory: no symptoms reported Cardiovascular: no symptoms reported Gastrointestinal: no symptoms reported Physical Exam Physical Exam Vital Signs Vital Signs - First Documented 08/19/22 08/19/22 14:39 16:25 Temp 38.3 Pulse 123 Resp 16 B/P (MAP) 126/67 (86) Pulse Ox 100 O2 Delivery Room Air Capillary Refill : Less Than 3 Seconds Height, Weight, BMI Height: '" Weight: lbs. oz. kg; 26.49 BMI Method: General Appearance: No Apparent Distress, WD/WN HEENT: PERRL/EOMI, Pharynx Normal Neck: Normal Inspection, Supple Respiratory: Lungs Clear, No Respiratory Distress Cardiovascular: Regular Rate, Rhythm, No Murmur Gastrointestinal: Normal Bowel Sounds, Soft Extremity: Normal Inspection, No Pedal Edema Neurologic/Psychiatric: Alert, No Motor/Sensory Deficits, Normal Mood/Affect Skin: Normal Color, Warm/Dry Results Results/Procedures Labs Laboratory Tests 08/19/22 14:43 08/19/22 19:44 08/19/22 23:41 08/20/22 05:19 08/20/22 09:30 Patient resulted labs reviewed. Imaging: Reviewed Imaging Report Assessment/Plan Admission Diagnosis Symptomatic anemia Admission Status: Inpatient Order (span 2 midnights) Reason for Inpatient Admission: Anemia Assessment and Plan Symptomatic anemia Iron deficiency anemia Chronic blood loss anemia Hgb 4 on arrival s/p 3 units PRBC Improved to 7.3 this morning IV PPI Iron studies consistent with iron deficiency anemia Occult blood positive IV Venofer Surgery consulted Planning for endoscopic evaluation, may defer to outpatient Alcohol abuse Ascites Nodular liver SIRS Recommend cessation CT with small ascites, not enough for paracentesis Rocephin for SBP prophylaxis Diagnosis/Problems Diagnosis/Problems (1) Symptomatic anemia Status: Acute (2) Chronic blood loss anemia Status: Acute (3) FRANCINE (iron deficiency anemia) Status: Acute Qualifiers: Iron deficiency anemia type: chronic blood loss Qualified Codes: D50.0 - Iron deficiency anemia secondary to blood loss (chronic) (4) Alcohol abuse Status: Acute (5) Ascites Status: Acute (6) SIRS (systemic inflammatory response syndrome) Status: Acute RADHIKA CAMPO MD Aug 20, 2022 16:35
--- NOTE | 2022-08-20 19:11 | Progress Note - Surgery ---
Subjective Date Seen by a Provider: Aug 20, 2022 Time Seen by a Provider: 08:25 Subjective/Events-last exam Patient feeling better today. He was transfused 3 units packed red blood cells. Patient hemoglobin responded appropriately. Patient not noticing bladder dark stools. Patient has no abdominal pain. He denies any new complaints. Denies any nausea vomiting fever sweats chills shortness of breath or chest pain. Focused Exam Lactate Level 08/19/22 16:41: Lactic Acid Level 0.95 Objective Exam Vital Signs Date Time Temp Pulse Resp B/P (MAP) Pulse Ox O2 Delivery O2 Flow Rate FiO2 08/20/22 13:00 120 37 146/83 (104) 99 Room Air 08/20/22 12:40 104 08/20/22 12:27 94 Room Air 08/20/22 12:00 95 39 126/70 (88) 93 Room Air 08/20/22 11:36 38.0 08/20/22 11:00 98 23 112/59 (76) 90 Room Air 08/20/22 10:00 105 17 137/80 (99) 96 Room Air 08/20/22 09:00 98 25 137/72 (93) 95 Room Air 08/20/22 08:00 98 20 112/69 (83) 95 Room Air 08/20/22 08:00 94 Room Air 08/20/22 07:36 37.4 08/20/22 07:15 98 08/20/22 07:00 102 21 130/69 (89) 94 Room Air 08/20/22 06:00 92 28 110/70 (83) 89 Room Air 08/20/22 05:00 100 28 120/68 (85) 92 Room Air 08/20/22 04:00 98 23 125/61 (82) 91 Room Air 08/20/22 04:00 95 Room Air 08/20/22 03:46 37.2 08/20/22 03:10 36.8 101 15 112/56 94 Room Air 08/20/22 03:00 99 130/63 (85) 94 Room Air 08/20/22 02:00 105 26 124/70 (88) 92 Room Air 08/20/22 01:25 36.8 105 18 123/90 94 Room Air 08/20/22 01:10 36.8 100 19 128/60 96 Room Air 08/20/22 01:00 93 128/60 (82) 90 Room Air 08/20/22 00:52 101 08/20/22 00:00 101 123/64 (83) 96 Room Air 08/20/22 00:00 93 Room Air 08/19/22 23:56 37.7 Room Air 08/19/22 23:00 108 26 118/58 (78) 94 08/19/22 22:00 104 113/60 (77) 96 08/19/22 21:37 37.2 106 16 147/71 97 Room Air 08/19/22 21:00 106 113/76 (88) 100 08/19/22 20:09 37.0 105 16 143/93 98 Room Air 08/19/22 20:00 36.9 Room Air 08/19/22 20:00 96 Room Air 08/19/22 19:54 36.9 103 16 147/74 99 Room Air I & O 08/20/22 07:00 Intake Total 1350 ml Output Total 750 ml Balance 600 ml Capillary Refill : Less Than 3 Seconds General Appearance: No Apparent Distress, WD/WN HEENT: PERRL/EOMI, Pharynx Normal Neck: Normal Inspection, Supple Respiratory: Chest Non Tender, No Accessory Muscle Use, No Respiratory Distress Cardiovascular: Regular Rate, Rhythm, No JVD Gastrointestinal: non tender, soft Extremity: Normal Inspection, No Pedal Edema Neurologic/Psychiatric: Alert, Oriented x3, No Motor/Sensory Deficits, Normal Mood/Affect Skin: Warm/Dry, Pallor (improved) Lymphatic: No Adenopathy Results Lab Laboratory Tests 08/19/22 19:44: Hemoglobin 5.3#*L, Hematocrit 19*L 08/19/22 23:41: Hemoglobin 5.9*L, Hematocrit 20*L 08/20/22 05:19: Hemoglobin 6.8*L, Hematocrit 23L, White Blood Count 7.5, Red Blood Count 2.90L, Mean Corpuscular Volume 78L, Mean Corpuscular Hemoglobin 23L, Mean Corpuscular Hemoglobin Concent 30L, Red Cell Distribution Width 17.9H, Platelet Count 228, Mean Platelet Volume 11.6, Immature Granulocyte % (Auto) 1, Neutrophils (%) (Auto) 89H, Lymphocytes (%) (Auto) 4L, Monocytes (%) (Auto) 5, Eosinophils (%) (Auto) 1, Basophils (%) (Auto) 0, Neutrophils # (Auto) 6.6, Lymphocytes # (Auto) 0.3L, Monocytes # (Auto) 0.4, Eosinophils # (Auto) 0.1, Basophils # (Auto) 0.0, Immature Granulocyte # (Auto) 0.1, Neutrophils % (Manual) , Sodium Level 138, Potassium Level 3.8, Chloride Level 109H, Carbon Dioxide Level 20L, Anion Gap 9, Blood Urea Nitrogen 11, Creatinine 0.81, Estimat Glomerular Filtration Rate 110, BUN/Creatinine Ratio 14, Glucose Level 92, Calcium Level 7.8L, Corrected Calcium 8.4L, Total Bilirubin 3.8#H, Aspartate Amino Transf (AST/SGOT) 34, Alanine Aminotransferase (ALT/SGPT) 21, Alkaline Phosphatase 114, Total Protein 5.4L, Albumin 3.2 08/20/22 09:30: Hemoglobin 7.3L, Hematocrit 24L 08/20/22 12:26: Lab Scanned Report Transfusion Reaction Form Microbiology 08/19/22 MRSA Screen - Final, Complete MRSA not isolated 08/19/22 Blood Culture - Preliminary, Resulted No growth Assessment/Plan Assessment/Plan Assessment/Plan anemia abnormal ct scan with nodular appearance of liver (cirrhosis) weakness fatigue shortness of breath transfused and responded appropriately. follow hgb and transfuse as needed. he does not have any symptoms of acute bleeding at this time he is anxious to get home and get back to work discussed will need endoscopy for further evaluation, inpatient vs outpatient clear liquids if remains stable advance protonix KIRTI JORDAN DO Aug 20, 2022 19:11
[2022-08-20 19:56] VITALS: BP 116/55
[2022-08-21] VITALS: BP 118/73
[2022-08-21 04:00] VITALS: BP 100/62
[2022-08-21 05:38] LABS: BASOPHILS % (AUTO) 1 % (0-10); EOSINOPHILS # (AUTO) 0.2 10^3/uL (0.0-0.3); EOSINOPHILS % (AUTO) 3 % (0-10); HEMATOCRIT 25 % (40-54); HEMOGLOBIN 7.5 g/dL (13.3-17.7); LYMPHOCYTES # (AUTO) 0.8 10^3/uL (1.0-4.0); LYMPHOCYTES % (AUTO) 13 % (12-44); MEAN CORPUSCULAR HEMOGLOBIN 24 pg (25-34); MEAN CORPUSCULAR HGB CONC 30 g/dL (32-36); MEAN CORPUSCULAR VOLUME 80 fL (80-99); MEAN PLATELET VOLUME 11.6 fL (9.0-12.2); MONOCYTES # (AUTO) 0.5 10^3/uL (0.0-1.0); MONOCYTES % (AUTO) 8 % (0-12); NEUTROPHILS # (AUTO) 4.7 10^3/uL (1.8-7.8); NEUTROPHILS % (AUTO) 75 % (42-75); PLATELET COUNT 240 10^3/uL (130-400); WHITE BLOOD COUNT 6.2 10^3/uL (4.3-11.0)
[2022-08-21 05:43] LABS: ALBUMIN 3.1 GM/DL (3.2-4.5)
[2022-08-21 05:44] LABS: POTASSIUM 3.4 MMOL/L (3.6-5.0)
[2022-08-21 05:45] LABS: CALCIUM 7.9 MG/DL (8.5-10.1)
[2022-08-21 05:46] LABS: TOTAL PROTEIN 5.5 GM/DL (6.4-8.2)
[2022-08-21 05:48] LABS: BILIRUBIN,TOTAL 1.1 MG/DL (0.1-1.0)
[2022-08-21 05:50] LABS: CREATININE SERUM 0.83 MG/DL (0.60-1.30)
[2022-08-21] MEDS ORDERED: KCL 20 MEQ TAB (K-DUR) PO SCH (06:00)
[2022-08-21] MEDS ORDERED: POTASSIUM CL 10MEQ/50ML IVPB 50 ML IV SCH (06:00)
[2022-08-21] MEDS ORDERED: MAGNESIUM 1 GM/100 ML IVPB 100 ML IV SCH (06:00)
[2022-08-21 08:04] VITALS: BP 125/66
[2022-08-21] MEDS: cefTRIAXone IV/IM 1,000 MG in NS (IVPB) 50 ML IV SCH (08:37)
[2022-08-21] MEDS: DOCUSATE SODIUM 100 MG (COLACE) CAP PO SCH (08:38)
[2022-08-21] MEDS: SENNOSIDES 8.6 MG (SENOKOT) TAB PO SCH (08:39)
[2022-08-21] MEDS ORDERED: KCL 20 MEQ TAB (K-DUR) PO ONE (09:00)
[2022-08-21] MEDS ORDERED: PANTOPRAZOLE 40 MG (PROTONIX) TAB PO SCH (09:00)
[2022-08-21] MEDS ORDERED: FERR325T18 PO (09:19)
[2022-08-21 10:03] VITALS: BP 125/66
== END 2022-08-21 10:50 | disposition home or self-care (01) | DRG 378 ==
LOC: EDUNIT# 14:32 → ER 14:35 → ICU 18:24 → 4TH 08-20 13:48
PROVIDERS: ADMIT Internal Medicine; ATTEND Internal Medicine
DX: K92.2 Gastrointestinal hemorrhage, unspecified (principal); R18.8 Other ascites; D50.0 Iron deficiency anemia secondary to blood loss (chronic); K58.9 Irritable bowel syndrome, unspecified; K74.60 Unspecified cirrhosis of liver; F10.10 Alcohol abuse, uncomplicated
CPT/HCPCS: 36415; 71045; 74177; 80053; 81000; 82274; 82728; 83010; 83540; 83550; 83605; 83690; 83735; 84484; 85007; 85014; 85018; 85025; 85027; 85045; 85055; 85610; 85730; 86850; 86900; 86901; 86920; 87040; 87081; 93005

== ENCOUNTER 2022-09-17 05:40 | Outpatient (CLI) | payer BC ==
[~2022-09-17] VITALS: Ht 177.8 cm; Wt 82.0 kg
[~2022-09-17 05:40] MED LIST: ELUX100T PO; FERR325T18 PO; OMEP40CA6 PO; ROSU20TA73 PO; TEMA30CA PO
[2022-09-17] MEDS ORDERED: ALOS0.5T2 PO (16:21)
== END 2022-09-17 16:30 ==
LOC: PREOP 05:40
PROVIDERS: ATTEND Surgery
DX: Z01.818 Encounter for other preprocedural examination (principal)

== ENCOUNTER 2022-09-30 10:48 | Day surgery (SDC) | payer BC, OTHER ==
[~2022-09-30] VITALS: Ht 177 cm; Wt 82.0 kg
[~2022-09-30 10:48] MED LIST changes: +ALOS0.5T2 PO
[2022-09-30] MEDS ORDERED: LACTATED RINGERS 1,000 ML IV STA (10:57)
--- NOTE | 2022-09-30 10:58 | Progress Note-Pre Operative ---
Pre-Operative Progress Note Date H&P Reviewed: Sep 30, 2022 Time H&P Reviewed: 10:58 History & Physical: H&P Reviewed, Patient Examed, No changes noted Pre-Operative Diagnosis: anemia, occult positive stool KIRTI JORDAN DO Sep 30, 2022 10:58
[2022-09-30] MEDS ORDERED: HURRICAINE EXT TUBE (BENZOCAINE) XX PRN (11:00)
[2022-09-30 11:20] VITALS: BP 137/78
[2022-09-30] MEDS ORDERED: PROPOFOL INJECTION 50 ML IV ONE ×2 (12:41→12:55)
[2022-09-30 13:15] VITALS: BP 104/63
--- NOTE | 2022-09-30 13:15 | Progress Note-Post Operative ---
Post-Operative Progess Note Surgeon (s)/Hemotherapist (s) Surgeon KIRTI JORDAN DO Hemotherapist: none Pre-Operative Diagnosis anemia, occult positive stool Post-Operative Diagnosis colon polyp gastritis hiatial hernia Procedure & Operative Findings Date of Procedure 09/30/22 Procedure Performed/Findings colonoscopy sigmoid polyp x1 hot Anesthesia Type per FIRMWARE SOFTWARE VERIFICATION ENGINEER Estimated Blood Loss Estimated blood loss (mL): none Specimens/Packing Specimens Removed antrum ge and colon polyp KIRTI JORDAN DO Sep 30, 2022 13:15
[2022-09-30] MEDS ORDERED: PANT40TA2 PO (13:16)
--- NOTE | 2022-09-30 13:18 | Discharge Inst-Simple/Standard ---
Discharge Inst-Standard Discharge Medications New, Converted or Re-Newed RX: Transmitted to Pharmacy Patient Instructions/Follow Up Plan of Care/Instructions/FU: 2 weeks brian Activity as Tolerated: Yes Discharge Diet: Regular Diet KIRTI JORDAN DO Sep 30, 2022 13:18
[2022-09-30 13:38] VITALS: BP_SYST 105; BP_SYST 120; BP_DIAS 59; BP_DIAS 73
--- NOTE | 2022-09-30 14:21 | Anesthesia-General Post-Op ---
MAC Patient Condition Mental Status/LOC: Same as Preop Cardiovascular: Satisfactory Nausea/Vomiting: Absent Respiratory: Satisfactory Pain: Controlled Complications: Absent Post Op Complications Complications None Follow Up Care/Instructions Patient Instructions None needed. Anesthesiology Discharge Order Discharge Order Patient is doing well, no complaints, stable vital signs, no apparent adverse anesthesia problems. No complications reported per nursing. ROGERS KINGSTON CRNA Sep 30, 2022 14:21
--- NOTE | 2022-09-30 18:52 | OPERATIVE REPORT ---
DATE OF SERVICE: 09/30/2022 PREOPERATIVE DIAGNOSES: Anemia, occult positive stool. POSTOPERATIVE DIAGNOSES: Severe gastritis, hiatal hernia, colon polyp. PROCEDURES: EGD with biopsies, colonoscopy with hot biopsy polypectomy x1. SURGEON: Kirti Jones DO ANESTHESIA: Per FACULTY INSTRUCTOR. ESTIMATED BLOOD LOSS: None. COMPLICATIONS: None. INDICATIONS: The patient is a 47-year-old male with anemia and occult positive stools. He understands risks and benefits of procedure and wishes to proceed. Consent was signed in chart. DESCRIPTION OF PROCEDURE: The patient was taken to the endoscopy suite, placed in left lateral recumbent position. Timeout was performed. Scope was inserted in the mouth, down the esophagus, into the stomach and into the duodenum without difficulty. There were no polyps, masses or ulcerations in the duodenum. Scope was then slowly retracted back the stomach where it was further insufflated. Some gastritis present. Biopsy of the antrum was obtained. Scope was retroflexed noting a hiatal hernia, no other pathology. Scope was returned to its normal position, slowly withdrawn until distal esophagus. Biopsy of GE junction was obtained. Scope was then slowly retracted back until completely remove noting no other pathology. Digital rectal exam was performed. No palpable polyps, masses or ulcerations. Scope was inserted in the rectum all the way to the cecum with minimal difficulty. Prep was adequate. Scope was slowly retracted back. No polyps, masses or ulcerations in the cecum, ascending, transverse and descending colon. In the sigmoid colon, has small polyp, which hot biopsy polypectomy was performed. Scope was then continuously retracted back into the rectum, where it was also retroflexed noting no other pathology. Scope was returned to its normal position, slowly withdrawn until completely removed. The patient tolerated the procedure well without complications, taken to recovery room in stable condition. RECOMMENDATIONS: The patient will need repeat colonoscopy in 5 years due to polyps. If he has any issues before that, be seen at that time. The patient will stop omeprazole and start Protonix 40 mg daily. We will see how symptoms with biopsies are in clinic in 2 weeks. Job ID: [id number] DocumentID: [id number] Dictated Date: 09/30/2022 13:16:21 Hander In Date: 09/30/2022 18:51:00 Dictated By: KIRTI JONES DO
== END 2022-09-30 13:55 | disposition home or self-care (01) ==
LOC: ENDO 10:48
PROVIDERS: ATTEND Surgery
DX: K29.70 Gastritis, unspecified, without bleeding (principal); K21.00 Gastro-esophageal reflux disease with esophagitis, without bleeding; K63.5 Polyp of colon; K31.89 Other diseases of stomach and duodenum; R19.5 Other fecal abnormalities; K44.9 Diaphragmatic hernia without obstruction or gangrene; D64.9 Anemia, unspecified

== ENCOUNTER 2022-12-17 08:02 | Outpatient (CLI) | payer BC ==
[~2022-12-17] VITALS: Ht 177.8 cm; Wt 77.3 kg
[~2022-12-17 08:02] MED LIST changes: +PANT40TA2 PO
[2022-12-17] MEDS ORDERED: NS IV 500 ML 500 ML IV SCH (08:30)
[2022-12-17 09:05] VITALS: BP 122/60
[2022-12-17 09:52] VITALS: BP 97/54
[2022-12-17 10:07] VITALS: BP 99/49
[2022-12-17 11:44] VITALS: BP 103/57
[2022-12-17 11:59] VITALS: BP 103/57
[2022-12-17 13:30] VITALS: BP 106/62
== END 2022-12-17 13:50 ==
LOC: SDC 08:02
PROVIDERS: ATTEND Nurse Practitioner
DX: D50.0 Iron deficiency anemia secondary to blood loss (chronic) (principal)
CPT/HCPCS: 36430; 86850; 86900; 86901; 86920

== ENCOUNTER → 2023-01-07 | Outpatient (CLI) | payer BC ==
[2023-01-07] VITALS (7 sets, daily range): BP systolic 94–116; BP diastolic 44–84
[~2023-01-07] VITALS: Ht 177 cm; Wt 81.0 kg
[~2023-01-07] MED LIST changes: +NS IV 500 ML 500 ML IV SCH
[2023-01-07 08:33] LABS: MEAN CORPUSCULAR HEMOGLOBIN 21 pg (25-34); MEAN CORPUSCULAR HGB CONC 25 g/dL (32-36); MEAN CORPUSCULAR VOLUME 84 fL (80-99); MEAN PLATELET VOLUME 12.3 fL (9.0-12.2); PLATELET COUNT 231 10^3/uL (130-400); WHITE BLOOD COUNT 12.1 10^3/uL (4.3-11.0)
[2023-01-07 08:36] LABS: HEMATOCRIT 18 % (40-54); HEMOGLOBIN 4.6 g/dL (13.3-17.7)
== END ==
LOC: SDC 07:54
PROVIDERS: ATTEND Nurse Practitioner
DX: D50.0 Iron deficiency anemia secondary to blood loss (chronic) (principal)
CPT/HCPCS: 36415; 36430; 85027; 86850; 86900; 86901; 86920